=== PATIENT | male | born 1975 | race Two or more races ===

== ENCOUNTER 2025-05-05 18:04 | Emergency (ER) | payer MEDICAID, SELFPAY ==
[2025-05-05 18:08] VITALS: BP 130/69
--- NOTE | 2025-05-05 20:55 | ED.GENMED ---
History of Present Illness
General
Chief Complaint: Skin Surface Trauma
Time Seen by Provider: 05/05/25 20:25
History of Present Illness
History of Present Illness:
50-year-old male without significant past medical history presenting for laceration to the right second digit. Patient notes he was cutting with a knife and suffered a small laceration to the distal tip of the finger. Denies numbness or tingling.
Notes that his tetanus is up-to-date. Denies any additional injuries. Denies any additional acute medical complaints
Phy Exam
Physical Exam
Physical Exam:
General: Well-appearing, no clinical signs of dehydration, nontoxic and in no acute distress
HEENT: protecting airway
Neck: appears supple
CV: Normal heart rate
Resp: No accessory muscle use, no increased work of breathing
Abd: no distension
Extremities: No deformities, no swelling. Small superficial laceration to the right second digit with bleeding controlled.
Neuro: alert, no focal neurologic deficit
: deferred
Rectal: deferred
Psych: Normal affect
Skin: Intact
Course
Orders/Labs/Results
Orders:
Orders
05/05/25 20:44
Ibuprofen [Motrin] 600 mg PO NOW STA
Vital Signs
Initial and Last Documented VS:
Initial Vital Signs
Temp Pulse Resp BP Pulse Ox
97.8 F 70 14 130/69 97
05/05/25 18:08 05/05/25 18:08 05/05/25 18:08 05/05/25 18:08 05/05/25 18:08
Last Documented Vital Signs
Temp Pulse Resp BP Pulse Ox
97.8 F 70 14 130/69 97
05/05/25 18:08 05/05/25 18:08 05/05/25 18:08 05/05/25 18:08 05/05/25 18:08
Procedures
Laceration Closure
Right Second Finger(s):
Status of Wound: clean
Size of Wound in cm: 2
Preparation: cleaned with saline
Anesthesia: 1% Lidocaine
Type of Closure: Dermabond-skin glue
MDM/Problems Addressed
MDM/Problems Addressed:
50-year-old male presenting for laceration to the right second digit. Vital signs are normal.
On exam patient is resting comfortably, no acute distress or discomfort. Superficial laceration. Bleeding is controlled. Given superficial nature of the laceration, repaired with glue. Appropriately irrigated. Tetanus up-to-date. No
neurovascular compromise. Feel stable for discharge. Advised local wound care. Return precautions discussed and patient verbalized understanding
*Pulse Oximetry
SaO2: 97
Oxygen Mode of Delivery: Room air
Patient hypoxic: no
*Critical Care Note
Total Time (30-74mins, 75-104mins- exclusive of procedures): Not Applicable
ED Attending Note
-
Portions of this chart may have been created with voice recognition software.� Occasional wrong word or��sound alike� substitutions may have occurred due to the inherent limitations of voice recognition software.
Discharge Plan
Departure
Patient Disposition: Home (Routine Discharge)
Date of Disposition: 05/05/25
Time of Disposition: 21:00
Patient with high blood pressure during this ER visit?: No
Condition: Good
Discharge Problem:
Laceration of finger
Instructions: Laceration Repair With Glue (DC)
Activity Restrictions/Additional Instructions:
You were seen in the emergency department for I think her laceration
Your finger was cleaned with saline, repaired with glue. Please keep dry for the next 24 hours and continue with local wound care thereafter
Please follow-up closely with your primary care physician.
Return to the emergency department for any worsening of your symptoms, or any development of chest pain, difficulty breathing, abdominal pain with persistent vomiting and inability to tolerate food or liquid by mouth (concern for dehydration),
weakness, headache or confusion, fever greater than 100.4, or any additional symptoms that are concerning to you.
Thank you for choosing [facility].
Interventions
Interventions:
*Risk Screen - Suicide Last Done: 05/05/25 18:08
*General Assessment Last Done: 05/05/25 18:08
*Neglect/Abuse Screening Last Done: 05/05/25 18:08
*ED COVID-19 Vaccine History Last Done: 05/05/25 18:08
*ED Influenza Vaccine History Last Done: 05/05/25 18:08
Discharge Date and Time
Print Language: OCCITAN
[2025-05-05] MEDS: MOTRIN 600 MG PO (20:59)
== END 2025-05-05 22:13 | disposition home or self-care (01) ==
LOC: EMR 18:04
PROVIDERS: EMERGENCY PHYSICIAN Student in an Organized Health Care Education/Training Program
DX: S61.210A Laceration without foreign body of right index finger without damage to nail, initial encounter (principal); W26.0XXA Contact with knife, initial encounter
CPT/HCPCS: 12001; 99282